=== PATIENT | male | born 1980 ===

== ENCOUNTER 2022-11-08 09:40 | Outpatient (REF) | payer MEDICAID, SELFPAY ==
[2022-11-08 16:29] LABS: Anion Gap 7.6 mmol/L (3-11); BUN 15 mg/dL (7-18); CO2 30.4 mmol/L (21.0-32.0); Calcium 9.1 mg/dL (8.5-10.1); Calculated LDL 91 mg/dL (<100); Chloride 104 mmol/L (98-107); Cholesterol 155 mg/dL (<200); Estimated GFR 96.97 (mL/min/1.73m2); Glucose 103 mg/dL (74-106); HDL Cholesterol 47 mg/dL (40-60); Sodium 142 mmol/L (136-145); TSH 2.48 uIU/mL (0.36-3.74); Triglyceride 85 mg/dL (<150)
== END 2022-11-08 09:41 | disposition home or self-care (01) ==
LOC: NCHCN 09:40
PROVIDERS: PCP Nurse Practitioner Family; Visit Provider Nurse Practitioner Family
DX: H93.13 Tinnitus, bilateral (principal); M25.561 Pain in right knee; Z13.220 Encounter for screening for lipoid disorders; Z13.29 Encounter for screening for other suspected endocrine disorder; Z00.00 Encounter for general adult medical examination without abnormal findings
CPT/HCPCS: 80048; 80061; 84443

== ENCOUNTER 2024-07-23 18:23 | Outpatient (REF) | payer BC, SELFPAY ==
[2024-07-23 22:20] LABS: HIV-1/2 Ag & Ab Screen Negative (Negative)
[2024-07-24 11:20] LABS: Chlamydia Result Negative (Negative); GC Result Negative (Negative)
[2024-07-24 11:23] LABS: Syphilis Serology (RPR) Negative (Negative)
[2024-07-24 15:23] LABS: Hepatitis C Ab w Rflx HCV PCR Negative (Negative)
== END 2024-07-23 18:24 | disposition home or self-care (01) ==
LOC: NCHCN 18:23
PROVIDERS: PCP Nurse Practitioner Family; Visit Provider Family Medicine
DX: Z11.4 Encounter for screening for human immunodeficiency virus [HIV] (principal); Z11.3 Encounter for screening for infections with a predominantly sexual mode of transmission; Z11.59 Encounter for screening for other viral diseases
CPT/HCPCS: 86803; 87389; 87491; 87591; 86592

== ENCOUNTER 2024-11-07 15:07 | Outpatient (REF) | payer BC, SELFPAY ==
[2024-11-07 19:59] LABS: ALT 39 U/L (16-63); AST 16 U/L (15-37); Albumin 4.1 g/dL (3.4-5.0); Alkaline Phosphatase 29 U/L (46-116); Anion Gap 8.2 mmol/L (3-11); BUN 17 mg/dL (7-18); CO2 29.8 mmol/L (21.0-32.0); CREATININE 0.9 mg/dL (0.70-1.30); Calcium 9.6 mg/dL (8.5-10.1); Chloride 104 mmol/L (98-107); Estimated GFR 108.68 (mL/min/1.73m2); Glucose 99 mg/dL (74-106); Potassium 4.5 mmol/L (3.5-5.1); Sodium 142 mmol/L (136-145); Total Protein 7.3 g/dL (6.4-8.2)
[2024-11-07 20:29] LABS: Calculated LDL 81 mg/dL (<100); Cholesterol 163 mg/dL (<200); HDL Cholesterol 68 mg/dL (>or=40); Triglyceride 70 mg/dL (<150)
== END 2024-11-07 15:08 | disposition home or self-care (01) ==
LOC: NCHCN 15:07
PROVIDERS: Visit Provider Nurse Practitioner Family
DX: Z00.00 Encounter for general adult medical examination without abnormal findings (principal)
CPT/HCPCS: 80053; 80061

== ENCOUNTER 2024-11-22 17:40 | Outpatient (REF) | payer BC, SELFPAY ==
[2024-11-22 17:33] LABS: Abs Immature Grans 0.01 10^3/uL (0.0-0.06); Absolute Basophil Count 0.04 10^3/uL (0.0-0.2); Absolute Lymphocyte Count 1.52 10^3/uL (1.2-3.4); Absolute Monocyte Count 0.49 10^3/uL (0.1-0.8); Absolute Neutrophil Count 3.34 10^3/uL (1.2-6.7); Basophils % 0.7 %; Eosinophils % 1.8 %; HCT 44.9 % (40.0-50.0); HGB 15.1 g/dL (13.5-17.5); Immature Grans % 0.2 %; Lymphocytes % 27.6 %; MCH 29.9 pg (27.0-33.0); MCHC 33.6 % (32.0-36.0); MCV 89 fL (80-95); Monocytes % 8.9 %; Neutrophils % 60.8 %; Platelet Count 216 10^3/uL (130-400); RBC 5.05 10^6/uL (4.36-5.78); RDW 13.4 % (11.8-14.1); RDW-SD 43.8 fL
[2024-11-22 17:52] LABS: Bilirubin, Direct 0.3 mg/dL (0.0-0.2); Magnesium 2.3 mg/dL
[2024-11-22 18:30] LABS: Vitamin B12 574 pg/mL (193-986); Vitamin D 25 Total 32 ng/mL (30-100)
== END 2024-11-22 17:41 | disposition home or self-care (01) ==
LOC: NCHCN 17:40
PROVIDERS: Visit Provider Nurse Practitioner Family
DX: E80.6 Other disorders of bilirubin metabolism (principal); E88.89 Other specified metabolic disorders
CPT/HCPCS: 82306; 82248; 82607; 83735; 84443; 85025